=== PATIENT | female | born 1985 | race Caucasian/White ===

== ENCOUNTER 2017-02-17 09:23 | Emergency (ER) | payer BC, OTHER ==
[2017-02-17 10:15] VITALS: BP 120/72
--- NOTE | 2017-02-17 10:15 | UC ---
Throat Pain/Nasal Pascual HPI - HPI Summary HPI Summary: 31 year old female presents with complains of sinus congestion and exposure to flu. - History of Current Complaint Chief Complaint: UCRespiratory Stated Complaint: ST Time Seen by Provider: 02/17/17 10:14 Hx Obtained From: Patient Hx Last Menstrual Period: 01/27/17 Onset/Duration: Sudden Onset Severity: Moderate Cough: Nonproductive Associated Signs & Symptoms: Positive: Sinus Discomfort - Allergies/Home Medications Allergies/Adverse Reactions: Allergies Allergy/AdvReac Type Severity Reaction Status Date / Time No Known Allergies Allergy Verified 02/17/17 10:14 PMH/Surg Hx/FS Hx/Imm Hx Previously Healthy: Yes - Surgical History Surgical History: None - Family History Known Family History: Positive: None - Social History Alcohol Use: Rare Substance Use Type: None Smoking Status (MU): Former Smoker Review of Systems Constitutional: Negative Skin: Negative Eyes: Negative ENT: Ear Ache, Sinus Congestion, Sinus Pain/Tenderness Respiratory: Negative Cardiovascular: Negative Gastrointestinal: Negative Genitourinary: Negative Motor: Negative Neurovascular: Negative Musculoskeletal: Negative Neurological: Negative Psychological: Negative All Other Systems Reviewed And Are Negative: Yes Physical Exam Triage Information Reviewed: Yes Vital Signs: Initial Vital Signs Temp 38.4 C 02/17/17 10:11 Pulse 99 02/17/17 10:11 Resp 16 02/17/17 10:11 BP 120/72 02/17/17 10:11 Pulse Ox 100 02/17/17 10:11 Eye Exam: Normal ENT: Positive: Nasal congestion, Nasal drainage, Tonsillar swelling, Sinus tenderness Dental Exam: Normal Neck exam: Normal Neck: Positive: 1 Respiratory Exam: Normal Cardiovascular Exam: Normal Abdominal Exam: Normal Musculoskeletal Exam: Normal Neurological Exam: Normal Psychological Exam: Normal Skin Exam: Normal Throat Pain/Nasal Course/Dx - Differential Dx/Diagnosis Provider Diagnoses: sinusitis Discharge - Discharge Plan Condition: Stable Disposition: HOME Prescriptions: Amoxicillin/Clavulanate TAB* [Augmentin TAB 875*] 875 mg PO BID #20 tab Guaifenesin-Codeine [Cheratussin AC] 1 teasp PO Q8H PRN #120 ml MDD 15 ml PRN Reason: Cough LoraTADine TAB(NF) [Claritin 10 MG TAB(NF)] 10 mg PO DAILY #30 tab Magic M W2 Tod/Maal/Nyst/Lido* 5 ml SWISH SPIT QID PRN #120 ml PRN Reason: Pain Patient Education Materials: Sinusitis (ED) Forms: *Work Release Referrals: No Primary Care Phys,NOPCP [Primary Care Provider] -
== END 2017-02-17 11:04 | disposition home or self-care (01) ==
LOC: UCCORT 09:23
DX: J32.9 Chronic sinusitis, unspecified (principal); Z87.891 Personal history of nicotine dependence
CPT/HCPCS: 87502; 87651; 99202; G0463

== ENCOUNTER 2017-02-21 12:28 | Emergency (ER) | payer OTHER ==
[2017-02-21 14:13] VITALS: BP 136/75
[2017-02-21] MEDS ORDERED: Acetaminophen TAB* 325 MG PO ONE (14:41)
--- NOTE | 2017-02-21 14:45 | UC ---
Respiratory Complaint HPI - HPI Summary HPI Summary: 31 y/o female presents to the urgent care c/o fever, body aches, sore throat, cough, nasal congestion since Thursday02/17/2017. She was seen here at the clinic on 02/17/2017 and tested for flu and strep, both negative and was Rx Augmentin PO for sinusitis. Symptoms didn't improve, she went to the [facility] ER on 02/19/2017 and tested negative for flu, given IV fluid and D/C home to continue with ABX. Fever has continue despite ABX and taking Ibuprofen/Tylenol PO. Se feels symptoms are worsening. She now has decrease appetite and weak. Pt dnies SOB, cough, chest pain, abdominal pain, N/V/D. LMP: 01/25/2017 on [place]. Declines test. - History of Current Complaint Chief Complaint: UCRespiratory Stated Complaint: FEVER, CHILLS, CONGESTION, SORE THROAT Time Seen by Provider: 02/21/17 14:10 Hx Obtained From: Patient Hx Last Menstrual Period: 01/25/17-implanon ?: No - Pt declines test Onset/Duration: Gradual Onset, Lasting Days - 5 days, Still Present, Worse Since - 2 days ago Timing: Intermittent Episodes Severity Initially: Mild Severity Currently: Moderate Pain Intensity: 8 Pain Scale Used: 0-10 Numeric Character: Cough: Productive, Sputum Description: - yellowish - Allergies/Home Medications Allergies/Adverse Reactions: Allergies Allergy/AdvReac Type Severity Reaction Status Date / Time No Known Allergies Allergy Verified 02/21/17 14:04 PMH/Surg Hx/FS Hx/Imm Hx Previously Healthy: Yes - Pt denies PMHX - Surgical History Surgical History: None - Family History Known Family History: Positive: Hypertension - Social History Occupation: Employed Full-time Lives: With Family Alcohol Use: Rare Substance Use Type: None Smoking Status (MU): Former Smoker When Did the Patient Quit Smoking/Using Tobacco: 2017 - Immunization History Most Recent Influenza Vaccination: no 2017 Review of Systems Constitutional: Fever, Chills, Other - body aches Skin: Negative Eyes: Negative ENT: Sore Throat, Ear Ache, Nasal Discharge, Sinus Congestion, Sinus Pain/ Tenderness Respiratory: Cough Cardiovascular: Negative Gastrointestinal: Negative Genitourinary: Negative Motor: Negative Neurovascular: Negative Musculoskeletal: Arthralgia Neurological: Headache Psychological: Negative Is Patient Immunocompromised?: No All Other Systems Reviewed And Are Negative: Yes Physical Exam Triage Information Reviewed: Yes Vital Signs: Initial Vital Signs Temp 101.8 F 02/21/17 14:05 Pulse 120 02/21/17 14:05 Resp 25 02/21/17 14:05 BP 136/75 02/21/17 14:05 Pulse Ox 100 02/21/17 14:05 - Additional Comments Vital Signs Reviewed: Yes General: well developed, well nourished female sitting in the examining table w/ o any apparent distress Eyes: Positive: Conjunctiva Clear - PERRLA, EOMI, fundi grossly normal ENT: Positive: Normal ENT inspection, Hearing grossly normal, Pharynx normal, Nasal congestion - edematous and erythematous nasal mucosa, Nasal drainage - yellowish drainage, TMs normal. Negative: Tonsillar swelling, Tonsillar exudate Neck: Positive: Supple, Nontender, No Lymphadenopathy Respiratory: no orthopnea or dyspnea. Able to speak in full sentences, no retractions or accessory muscle use, no tripod position, stridor, or head bobbing. CTA bilaterally, mild rhonchi in the left upper posterior lung, no wheezes, rales. Cardiovascular: Positive: RRR, No Murmur, Pulses Normal, Brisk Capillary Refill Abdomen Description: Positive: Nontender, No Organomegaly, Soft. Negative: CVA Tenderness (R), CVA Tenderness (L) Bowel Sounds: Positive: Present Musculoskeletal Exam: Normal Musculoskeletal: Positive: Strength Intact, ROM Intact, No Edema Neurological Exam: Normal Psychological Exam: Normal Skin Exam: Normal UC Diagnostic Evaluation - Laboratory O2 Sat by Pulse Oximetry: 100 Respiratory Course/Dx - Course Course Of Treatment: 31 y/o female presents to the urgent care c/o fever, body aches, sore throat, cough, nasal congestion since Thursday02/17/2017. She was seen here at the clinic on 02/17/2017 and tested for flu and strep, both negative and was Rx Augmentin PO for sinusitis. Symptoms didn't improve, she went to the [facility] ER on 02/19/2017 and tested negative for flu, given IV fluid and D/C home to continue with ABX. Fever has continue despite ABX and taking Ibuprofen/ Tylenol PO. [facility] feels symptoms are worsening. She now has decrease appetite and weak. Pt denies SOB, cough, chest pain, abdominal pain, N/V/D. Hx obtained.Pt with mild rhonchi of the left posterior upper lung on examination, tachycardic and febrile. Pt given Tylenol PO at the clinic. Pt tolerated well medication. Chest X-ray ordered to r/o pneumonia. Impression: No acute cardiopulmonary disease observed. Influenza A&B ordered: result: Influenza B positive.Pt Rx Tamiflu and ibuprofen PO to alleviates symptoms. Advised to stop Augmenti PO. Also to encourageon hand washing and wear a mask to avoid spreading. Pt advised to rest, increase fluid intake, eat well and avoid strenuous exercise. If symptoms do not improve or worsen advised to return to go immediately to the ER for further evaluation and treatment. Pt understood and agreed with plan of care. - Differential Dx/Diagnosis Differential Diagnosis/HQI/PQRI: Asthma, Bronchitis, Influenza, Laryngitis, Lower Resp Infection, Sinusitis, Other - pneumonia Provider Diagnoses: 1- Influenza B. 2- fever Discharge - Discharge Plan Condition: Stable Disposition: HOME Prescriptions: Ibuprofen TAB* [Motrin TAB* 800 MG] 800 mg PO Q6H PRN #20 tab PRN Reason: Fever Oseltamivir CAP* [Tamiflu CAP*] 75 mg PO BID #10 cap Patient Education Materials: Fever in Adults (ED), Influenza (ED) Forms: *Work Release Referrals: [facility] [place] [facility] [Outside] - 2 Days Additional Instructions: 1- Please take the full course of the antiviral to avoid resistance. Encourage hand washing and wear a mask to avoid spreading 2-Please take ibuprofen PO q6-8hrs prn as instructed after meals to alleviate pain and swelling. Increase fluid intake, eat well, rest and avoid strenuous exercise. 3-If symptoms do not improve to please return to the urgent care or f/u with your PCP in 2 days for further evaluation and treatment. Go to the ER if worsening of symptoms.
--- NOTE | 2017-02-21 15:12 | RAD ---
INDICATION: Productive cough. COMPARISON: There are no prior studies available for comparison. TECHNIQUE: Dual-energy PA and lateral views of the chest were obtained. FINDINGS: The heart is within normal limits in size. Mediastinal and hilar contours appear within normal limits. The lungs are clear. No pleural effusion is present. IMPRESSION: NO EVIDENCE FOR ACTIVE CARDIOPULMONARY DISEASE.
== END 2017-02-21 15:30 | disposition home or self-care (01) ==
LOC: UCCORT 12:28
DX: J10.1 Influenza due to other identified influenza virus with other respiratory manifestations (principal); R50.9 Fever, unspecified; Z87.891 Personal history of nicotine dependence
CPT/HCPCS: 71046; 87502; 99212; A9270-GY; G0463